=== PATIENT | female | born 1980 | race Caucasian/White ===

== ENCOUNTER 2017-09-19 00:23 | Emergency (ER) | payer SELFPAY ==
[~2017-09-19] VITALS: Ht 165.1 cm; Wt 79.4 kg
[2017-09-19] MEDS ORDERED: HYDROCODONE/APAP 10MG-325MG TAB PO ONE (00:30)
[2017-09-19] MEDS ORDERED: TYLENOL WITH C1 EACH PO (01:13)
--- NOTE | 2017-09-19 01:18 | Diagnostic Imaging Report ---
SHOULDER LEFT COMPLETE HUMERUS LEFT 2+VIEWS HISTORY: Status post fall, dislocation COMPARISON: None FINDINGS: Bones: Acute, displaced fracture of the proximal left humeral neck. Joints: The joint spaces are well-maintained. Soft tissues: The soft tissues appear unremarkable. IMPRESSION: Acute fracture of the proximal left humeral neck without evidence of dislocation Signed by: Dr. Mingo Tate M.D. on 09/19/2017 1:14 AM
[2017-09-19] MEDS ORDERED: KETOROLAC TROMETHAMINE 60 MG/2 ML VIAL IM ONE (01:30)
== END 2017-09-19 01:58 | disposition home or self-care (01) ==
LOC: ER 00:23
DX: M79.622 Pain in left upper arm (principal); S42.292A Other displaced fracture of upper end of left humerus, initial encounter for closed fracture; W18.2XXA Fall in (into) shower or empty bathtub, initial encounter; Y93.E1 Activity, personal bathing and showering; Y92.002 Bathroom of unspecified non-institutional (private) residence as the place of occurrence of the external cause
CPT/HCPCS: 73030; 73060; 99284; J1885